=== PATIENT | male | born 1995 | race Hispanic/Latino ===

== ENCOUNTER 2024-12-18 22:17 | Emergency (ER) | payer SELFPAY ==
[2024-12-18 22:19] VITALS: BP 139/86
[2024-12-18 22:40] LABS: % Basophils 0.5 % (0-2); % Eosinophils 1.4 % (0-6); % Immature Granulocytes 0.2 % (0-0.5); % Lymphocytes 35.4 % (20.5-51.1); % Monocytes 5.1 % (1.7-9.3); % Neutrophils 57.4 % (42.2-75.2); Absolute Basophils 0.1 10^3/uL (0-0.2); Absolute Eosinophils 0.1 10^3/uL (0-0.7); Absolute Lymphocytes 3.5 10^3/uL (1.2-3.4); Absolute Monocytes 0.5 10^3/uL (0.1-0.6); Absolute Neutrophils 5.7 10^3/uL (1.4-6.5); Hematocrit 42.6 % (39.0-52.0); Hemoglobin 14.4 g/dL (13.0-18.0); Mean Corp Hgb Conc. 33.8 g/dL (33.0-37.0); Mean Corpuscular Hgb 27.1 pg (27.0-31.0); Mean Corpuscular Volume 80.1 fL (80.0-94.0); Mean Platelet Volume 8.7 fL (7.4-10.4); Nucleated Red Blood Cells % 0 % (-); Platelet Count 373 10^3/uL (130-400); Red Blood Cell Count 5.32 10^6/uL (4.70-6.10); Red Cell Dist. Width 13.2 % (11.5-14.5)
[2024-12-18 23:02] LABS: ALT (SGPT) 93 U/L (0-50); AST (SGOT) 44 U/L (17-59); Albumin 4.6 g/dl (3.5-5.0); Alkaline Phosphatase 83 U/L (38-126); Blood Urea Nitrogen 12 mg/dl (9-20); Calcium 10.2 mg/dl (8.4-10.2); Carbon Dioxide 28 mmol/L (22-30); Chloride 102 mmol/L (98-107); Glucose 111 mg/dl (70-99); Potassium 3.9 mmol/L (3.5-5.1); Sodium 140 mmol/L (135-145); Total Bilirubin 0.8 mg/dl (0.2-1.3); Total Protein 7.8 g/dl (6.3-8.2); eGFR > 60.00
--- NOTE | 2024-12-19 00:05 | ED.GENMED ---
History of Present Illness
General
Chief Complaint: Anxiety
Source: patient
Exam Limitations: none
Time Seen by Provider: 12/18/24 23:42
Nursing documentation reviewed up to this point in time: agreed with
History of Present Illness
History of Present Illness:
This is a 29-year-old male with no significant past medical history presents with concern for several week history of generalized anxiety, stress. Admits to feeling depressed, somewhat sad and admits to overall worry, difficulty turning his brain
off at nighttime. He works part-time at a [employer] and other than this admits to feeling somewhat lonely, difficulty making friendships, he tends to just stay indoors, in his room.
He admits to similar episodes of sadness, anxiety number of years ago which resolved on its own.
No previous treatment for anxiety/depression.
He denies suicidal thoughts or plan.
He denies alcohol or drug use.
He takes no medicines on a daily basis.
Past History
Past History
ED Past Medical History: None
ED Past Surgical History: None
Social History
Tobacco: Non-smoker
Alcohol: None
Drug: None
Personal: Single
Living: with family
Employment: Employed ([employer])
Family History
Family History: Other (Noncontributory)
Phy Exam
Physical Exam
Physical Exam:
GENERAL: 29-year-old overweight male appears his stated age, awake and alert, pleasant, easily communicative and in no acute distress. Accompanied by his mother and another male individual I suspect is his brother.
EYE: pupils equal. anicteric
NECK: Supple, nontender, no meningismus, no significant adenopathy.
ENT: oral mucosa is moist. No rhinorrhea.
CARDIAC: Regular rate and rhythm. no murmur.
LUNGS: Clear breath sounds bilaterally, no acute respiratory distress, no wheezes/rales/rhonchi
ABDOMEN: Rotund, soft, nondistended, without focal tenderness
NEUROLOGICAL: Alert and oriented x3, no focal neuro deficits. Gait is thompson and steady.
SKIN: Warm and dry, normal color, skin intact. No rash.
MUSCULOSKELETAL: No C/C/E. peripheral pulses are full and equal b/l. No palpable tenderness.
PSYCH: Admits to anxiety, stress, depression/sadness as well as feeling somewhat lonely but adamantly denies suicidal thoughts or plan. Denies alcohol or drug use. Fair insight and judgment. Normal speech pattern.
Course
Orders/Labs/Results
Orders:
Orders
12/18/24 22:33
Complete Blood Count/With Diff Urgent
Comprehensive Metabolic Panel Urgent
Abnormal Lab Results
12/18/24
22:33
Absolute Lymphs (auto) 3.5 H 10^3/uL
(1.2-3.4)
Glucose 111 H mg/dl
(70-99)
ALT 93 H U/L
(0-50)
12/18/24 22:33
12/18/24 22:33
Vital Signs
Initial and Last Documented VS:
Initial Vital Signs
Temp Pulse Resp BP Pulse Ox
98.4 F 81 19 139/86 99
12/18/24 22:19 12/18/24 22:19 12/18/24 22:19 12/18/24 22:19 12/18/24 22:19
Last Documented Vital Signs
Temp Pulse Resp BP Pulse Ox
98.4 F 81 19 139/86 99
12/18/24 22:19 12/18/24 22:19 12/18/24 22:19 12/18/24 22:19 12/18/24 22:19
MDM/Problems Addressed
Differential Diagnosis Includes:
Patient presents with several week history of anxiety, sadness. Difficulty sleeping with perversive thoughts but adamantly denies suicidal thoughts or plan.
No previous treatments for anxiety/depression.
No history of alcohol or drug use.
Fair insight and judgment. Accompanied by his mother and brother. Has good support system in place.
Routine laboratory studies unremarkable. Could consider thyroid function disorder as cause for symptoms thus will check TSH with reflex to free T4.
Recommend initiation of medication such as an SSRI along with outpatient counseling.
[facility] has provided resources/information for outpatient counseling services.
As patient lacks healthcare coverage, will refer to our free clinic for follow-up.
Strict return precautions discussed.
*Pulse Oximetry
Patient hypoxic: no
*Critical Care Note
Total Time (30-74mins, 75-104mins- exclusive of procedures): Not Applicable
ED Attending Note
-
Portions of this chart may have been created with voice recognition software.� Occasional wrong word or��sound alike� substitutions may have occurred due to the inherent limitations of voice recognition software.
Discharge Plan
Departure
Patient Disposition: Home (Routine Discharge)
Date of Disposition: 12/19/24
Time of Disposition: 00:13
Patient with high blood pressure during this ER visit?: No
Discharge Problem:
generalized anxiety with depression
Instructions: Depression, Adult (DC), Generalized Anxiety Disorder (DC)
Prescriptions:
New
sertraline [Zoloft] 50 mg tablet
50 mg PO HS Qty: 30 0RF
Referrals:
[facility] [Outside] - Call in 1-3 days for appt
NONE,* [Family Provider] -
Interventions
Interventions:
*Risk Screen - Suicide Last Done: 12/18/24 22:23
*General Assessment Last Done: 12/18/24 22:22
*Neglect/Abuse Screening Last Done: 12/18/24 22:23
*ED COVID-19 Vaccine History Last Done: 12/18/24 22:22
Discharge Date and Time
Print Language: SINHALA
--- NOTE | 2024-12-19 00:10 | EDRN ---
[facility]risis is at bedside giving outpatient resources
[2024-12-19 01:21] LABS: TSH Reflex To Free T4 2.26 uIU/ml (0.47-4.68)
== END 2024-12-19 01:03 | disposition home or self-care (01) ==
LOC: EMR 22:17
PROVIDERS: EMERGENCY PHYSICIAN Emergency Medicine
DX: F41.1 Generalized anxiety disorder (principal); F32.A Depression, unspecified; E66.3 Overweight
CPT/HCPCS: 99283; 80053; 84443; 85025